=== PATIENT | male | born 2000 | race Caucasian/White ===

== ENCOUNTER 2020-09-02 17:37 | Outpatient (CLI) | payer BC ==
[2020-09-03 02:53] LABS: SARS-CoV-2 PCR by NAA Not Detected (NotDetected)
== END 2020-09-02 17:38 | disposition home or self-care (01) ==
LOC: LABBT 17:37
PROVIDERS: ATTEND Student in an Organized Health Care Education/Training Program
DX: Z01.812 Encounter for preprocedural laboratory examination (principal); J03.91 Acute recurrent tonsillitis, unspecified; Z20.822 Contact with and (suspected) exposure to COVID-19
CPT/HCPCS: 87635; U0003; U0005

== ENCOUNTER 2020-09-06 07:25 | Day surgery (SDC) | payer BC ==
[2020-09-05 09:47] VITALS: BMI 23.6
[2020-09-06] MEDS ORDERED: Ferric Subsulfate (ASTRINGYN) 8 GM VIAL ONE (07:41)
[2020-09-06] MEDS ORDERED: Acetaminophen 500 MG TAB ONE (07:58)
[2020-09-06] MEDS ORDERED: Fentanyl 100 MCG/2 ML VIAL ONE ×2 (08:40→10:12)
[2020-09-06] MEDS ORDERED: Morphine 2 MG/ML VIAL ONE (08:40)
[2020-09-06] MEDS ORDERED: Lidocaine 1% PF 5 ML VIAL ONE (09:11)
[2020-09-06] MEDS ORDERED: Dexamethasone 20 MG/5 ML VIAL ONE (09:11)
[2020-09-06] MEDS ORDERED: Ondansetron PF 4 MG/2 ML Vial ONE (09:11)
[2020-09-06] MEDS ORDERED: PROPOFOL 200 MG/20 ML VIAL ONE (09:11)
[2020-09-06] MEDS ORDERED: Meperidine HCl/PF 25 MG/ML VIAL ONE (10:03)
[2020-09-06] MEDS ORDERED: Hydrocodone-Acetamin 15 ML UDCUP ONE (11:28)
== END 2020-09-06 12:08 | disposition home or self-care (01) ==
LOC: SDC 07:25
PROVIDERS: ATTEND Student in an Organized Health Care Education/Training Program
PROC: 0CTPXZZ Resection of Tonsils, External Approach (ICD-10-PCS; principal; 2020-09-06)
DX: J03.91 Acute recurrent tonsillitis, unspecified (principal); J35.01 Chronic tonsillitis; J35.8 Other chronic diseases of tonsils and adenoids; Z79.899 Other long term (current) drug therapy
CPT/HCPCS: 88304; J1100; J2175; J2270; J2405; J2704; J3010